=== PATIENT | female | born 2000 | race Hispanic/Latino ===

== ENCOUNTER → 2021-06-26 | Day surgery (SDC) | payer BC ==
[2021-06-24 14:14] LABS: BASOPHILS % 0.4 % (0.0-1.0); EOSINOPHILS # (AUTO) 0.3 (0.0-0.4); EOSINOPHILS % 2.4 % (0.0-6.0); HEMATOCRIT 33.1 % (34.2-44.1); HEMOGLOBIN 10.3 g/dL (12.0-16.0); LYMPHOCYTES # (AUTO) 1.5 (1.0-3.2); LYMPHOCYTES % 14.8 % (18.0-39.1); MEAN CORPUSCULAR HEMOGLOBIN 25.4 pg (28-32); MEAN CORPUSCULAR HGB CONC 31.1 g/dL (31-35); MEAN CORPUSCULAR VOLUME 81.5 fL (81-99); MONOCYTES # (AUTO) 0.5 (0.2-0.8); PLATELET COUNT 297 x10e3/uL (140-360); RED BLOOD COUNT 4.06 x10e6/uL (3.6-5.1)
[~2021-06-26] MED LIST: HEPARIN SOD (PORCINE) 1000 UNIT/ML SDV ONE; SODIUM CHLORIDE 0.9% 100 ML ONE; SODIUM CHLORIDE 0.9% 50ML 100 ML ONE; ULTRACET TABLE1 EACH PO
[2021-06-26 08:35] VITALS: BP 108/71
== END | disposition home or self-care (01) ==
LOC: OR 05:29
PROVIDERS: ATTEND Surgery
DX: C81.91 Hodgkin lymphoma, unspecified, lymph nodes of head, face, and neck (principal); Z01.812 Encounter for preprocedural laboratory examination; Z20.822 Contact with and (suspected) exposure to COVID-19
CPT/HCPCS: 36415; 36561; 71045; 76000; 81025; 84702; 85025; C1751; J0690; J1644; J7050; U0002